=== PATIENT | male | born 1960 | race Caucasian/White ===

== ENCOUNTER 2022-09-19 11:14 | Inpatient (IN) | payer MEDICAID ==
[~2022-09-19] VITALS: Ht 177.8 cm; Wt 83.9 kg
--- NOTE | 2022-09-19 11:31 | NUR ---
PT BIB FRIEND, AWAKE AND INTOXICATED. PT FRIEND WAS CONCERNED BECAUSE PT WAS ACTING ABNORMALLY. PT FRIEND STATED THAT PT IS A REGULAR DRINKER AND DRINKS 1 PINT OF WHISKEY A DAY. PT ALSO TAKING NORCO FOR PAIN TO A BACK INJURY LAST WEEK.
--- NOTE | 2022-09-19 11:33 | NUR ---
MD DR CHOWDHURY AT BEDSIDE
[2022-09-19 12:35] LABS: ANION GAP 8 (5-15); BASOPHILS # (AUTO) 0.1 K/uL (0.0-0.2); BASOPHILS % (AUTO) 1.2 % (0.0-2.0); CALCIUM 8.4 mg/dL (8.4-11.0); CHLORIDE 103 mmol/L (98-107); CREATININE 1.01 mg/dL (0.55-1.30); EOSINOPHILS % (AUTO) 0.1 % (0.0-4.0); GLUCOSE 139 mg/dL (70-99); HEMATOCRIT 34.3 % (36-54); HEMOGLOBIN 11.8 g/dL (14.0-18.0); LYMPHOCYTES # (AUTO) 1.5 K/uL (1.0-5.5); LYMPHOCYTES % (AUTO) 12.4 % (20.5-51.5); MEAN CORPUSCULAR HEMOGLOBIN 33 pg (27-31); MEAN CORPUSCULAR HGB CONC 35 % (32-36); MEAN CORPUSCULAR VOLUME 94 fL (79.0-98.0); MONOCYTES # (AUTO) 0.6 K/uL (0.0-1.0); MONOCYTES % (AUTO) 4.8 % (1.7-9.3); NEUTROPHILS # (AUTO) 9.7 K/uL (1.8-7.7); NEUTROPHILS % (AUTO) 81.5 % (40.0-70.0); PLATELET COUNT (AUTO) 185 K/uL (130-430); RED BLOOD CELL COUNT(AUTO) 3.63 MIL/uL (4.2-6.2); RED CELL DISTRIBUTION WIDTH 18.4 % (9.0-15.0); UREA NITROGEN, BLOOD 19 mg/dL (8-21); WHITE BLOOD COUNT (AUTO) 11.9 K/uL (4.8-10.8)
[2022-09-19 12:44] LABS: ALANINE AMINOTRANSFERASE 31 U/L (12-78); ALBUMIN 2.7 g/dL (3.4-4.8); AMYLASE 49 U/L (0-100); ASPARTATE AMINOTRANSFERASE 76 U/L (10-37); LIPASE 153 U/L (73-393); TOTAL BILIRUBIN 2.1 mg/dL (0.0-1.0)
[2022-09-19 12:47] LABS: ACETAMINOPHEN < 1 ug/mL (1-30); GFR AFRICAN AMERICAN 97 mL/min (>90)
[2022-09-19 12:48] LABS: ALCOHOL, BLOOD 414 mg/dL (<10)
[2022-09-19 12:51] LABS: ACETONE, SERUM NEGATIVE (NEGATIVE)
[2022-09-19] MEDS: NACL 0.9% 1,000 ML IV SCH ×2 (14:30→22:24)
--- NOTE | 2022-09-19 14:40 | NUR ---
COVID SWAB OBTAINED AND SENT TO LAB.
[2022-09-19] MEDS: chlordiazePOXIDE HCL 25 MG CAPSULE PO SCH ×2 (15:00→22:21)
--- NOTE | 2022-09-19 15:00 | NUR ---
PT IS A POOR HISTORIAN OF HIS MEDICATION, RECONCILIATION NOT DONE
[2022-09-19] MEDS ORDERED: MORPHINE 2 MG/ML INJ. SYRINGE IVP PRN ×2 (15:15)
[2022-09-19] MEDS ORDERED: DOCUSATE SODIUM 100 MG CAPSULE PO PRN (15:15)
[2022-09-19] MEDS ORDERED: MUPIROCIN 2% TOPICAL OINTMENT 22 GM NS PRN (15:15)
[2022-09-19] MEDS ORDERED: ZOLPIDEM TARTRATE 5 MG TABLET PO PRN (15:15)
[2022-09-19] MEDS ORDERED: MAGNESIUM SULFATE 50 ML IV PRN (15:15)
[2022-09-19] MEDS ORDERED: ONDANSETRON HCL 4 MG/2 ML VIAL IVP PRN (15:15)
[2022-09-19] MEDS ORDERED: LORazepam 2 MG/ML VIAL IVP PRN ×2 (15:15)
[2022-09-19] MEDS ORDERED: POTASSIUM CHLORIDE 20 MEQ TAB.PRT.SR PO PRN (15:15)
--- NOTE | 2022-09-19 15:26 | NUR ---
Admit bed requested Patient will be admitted to care of Dr. DAO. Admitted to TELE unit. Diagnosis ACUTE ALCOHOSLISM, ENCEPALATOTY Inpatient (Yes or No) YES Observation (Yes or No) NO Orientation concerns or request close to nursing station (Yes or No) NO Covid Status NEG On vent or bipap NO Isolation requirements NO Needs a sitter NO From Home (Yes or if No enter name of facility) HOME Requires Dialysis (Yes or No) NO Med Rec Completed (Yes of No) YES
--- NOTE | 2022-09-19 18:04 | NUR ---
Served regular dinner tray, helped pt. sit up. He is eating now.
[2022-09-19] MEDS ORDERED: chlordiazePOXIDE HCL 25 MG CAPSULE ONE (20:56)
--- NOTE | 2022-09-19 21:30 | NUR ---
ADMISSION NOTE Received patient from ER via gurney. Patient admitted with diagnosis of Acute Alcoholism, Encephalopathy. Patient is awake, alert, oriented X 4. Patient oriented to hospital room, call light, toileting, pain management and safety-teach back done. Patient informed that Sahil FLORES will be the nurse and that their room number is 102B. Personal belongings checked and Belongings List documented. Call light within reach.
[2022-09-19 22:26] VITALS: BP_SYST 155
[2022-09-19 23:26] VITALS: BP_SYST 135
--- NOTE | 2022-09-19 23:41 | NUR ---
Patient will be admitted to care of DR DAO. Admitted to TELE unit. Will go to room 102B. Belongings list completed. Complete and up to date summary report printed. SBAR report to be given at bedside with opportunity for questions.
[2022-09-20] VITALS (8 sets, daily range): BP systolic 146–164
--- NOTE | 2022-09-20 02:49 | NUR ---
CONSULTATION PAGED/CALLED Reason for Consultation: CHRONIC SUNDURAL HEMATURA Person Who was Notified: DR MOLINA VIA TEXT Consulting Physician: Laverne MOLINA [employer]ulcanizer Tender Specialty: Ordering Physician: FELIBERTO
[2022-09-20] MEDS ORDERED: METOPROLOL TARTRATE 25 MG TABLET PO SCH (04:00)
[2022-09-20] MEDS: ACETAMINOPHEN 325 MG TABLET PO PRN ×2 (04:16→14:28)
--- NOTE | 2022-09-20 04:28 | NUR ---
Dr. Vallejo Called: Patient had a consistently High HR that would rise up to the 160 range and maintain for about 5 minutes but would no go lower than 120BPM. Dr. Helms was notified and a new order was received for Lopressor order is noted and carried out. Will continue to monitor patient.
--- NOTE | 2022-09-20 06:56 | NUR ---
Patient was assessed prior to administration of Lopressor and Temp was noted to be elevated at 101.5 at 0415am. acetaminophen was administered and cooling measures were applied. Patient temp was reassessed after 30 minutes and noted to be 99.1.
[2022-09-20 07:02] LABS: HEMATOCRIT 30.6 % (36-54); HEMOGLOBIN 10.4 g/dL (14.0-18.0); LYMPHOCYTES # (AUTO) 1.1 K/uL (1.0-5.5); LYMPHOCYTES % (AUTO) 10.3 % (20.5-51.5); MEAN CORPUSCULAR HEMOGLOBIN 32 pg (27-31); MEAN CORPUSCULAR HGB CONC 34 % (32-36); MEAN CORPUSCULAR VOLUME 94 fL (79.0-98.0); MONOCYTES # (AUTO) 0.7 K/uL (0.0-1.0); MONOCYTES % (AUTO) 6.7 % (1.7-9.3); NEUTROPHILS # (AUTO) 8.9 K/uL (1.8-7.7); NEUTROPHILS % (AUTO) 81.6 % (40.0-70.0); PLATELET COUNT (AUTO) 74 K/uL (130-430); RED BLOOD CELL COUNT(AUTO) 3.26 MIL/uL (4.2-6.2); RED CELL DISTRIBUTION WIDTH 18.1 % (9.0-15.0); WHITE BLOOD COUNT (AUTO) 10.9 K/uL (4.8-10.8)
[2022-09-20] MEDS: NACL 0.9% 1,000 ML IV SCH ×2 (07:10→15:30)
[2022-09-20 07:41] LABS: CALCIUM 7.9 mg/dL (8.4-11.0); CREATININE 0.81 mg/dL (0.55-1.30)
--- NOTE | 2022-09-20 08:00 | NUR ---
Initial notes Received patient awake in bed sleeping, respiration even and unlabored, no signs of distress Saline lock to both RFA and LAC patent. All safety precaution secure continue to monitor.
[2022-09-20 08:30] LABS: BASOPHILS % (AUTO) 0.2 % (0.0-2.0); EOSINOPHILS # (AUTO) 0.1 K/uL (0.0-0.4); EOSINOPHILS % (AUTO) 1.2 % (0.0-4.0)
[2022-09-20] MEDS: chlordiazePOXIDE HCL 25 MG CAPSULE PO SCH ×2 (08:44→14:29)
[2022-09-20] MEDS ORDERED: MAGNESIUM SULFATE 4 GM in D5W 250 ML IV ONE (09:30)
[2022-09-20] MEDS ORDERED: LIB25 PO (12:55)
--- NOTE | 2022-09-20 14:00 | NUR ---
Medication given for anxiety
--- NOTE | 2022-09-20 14:41 | NUR ---
Observe patient shivering ,shaking, temperature 102, PT at bedside patient unable to sit at edge of bed. Notified Dr. Helms. Ativan given. Continue to monitor patient in 2 hours for pending discharge.
--- NOTE | 2022-09-20 16:15 | NUR ---
Discontinue Saline lock to right and left forearm with catheter intact
--- NOTE | 2022-09-20 18:30 | NUR ---
Reassess patient for discharge Patient verbalizes feeling better, alert/awake /oriented x4. No signs of tremors or shivering. Dr Helms OK for patient to be discharge at this time.
--- NOTE | 2022-09-20 18:56 | NUR ---
Patient discharge home per doctor order (Dr. Helms). No signs of shivering or tremor, or SOB, vital signs w/in norm. Instruction given, educational information per medical diagnosis. Prescription given to patient to filled by outside pharmacy. Instruct patient to followup primary care physician. Communicate with Abe ( patient partner ) who will take patient home.
[2022-09-21] MEDS ORDERED: LIB25 PO ×2 (15:08→15:37)
== END 2022-09-20 21:15 | disposition home or self-care (01) | DRG 816 ==
LOC: SED 11:14 → STU 15:29
PROVIDERS: ADMIT General Practice; ATTEND General Practice
DX: T51.91XA Toxic effect of unspecified alcohol, accidental (unintentional), initial encounter (principal); G92.9 Unspecified toxic encephalopathy; F10.121 Alcohol abuse with intoxication delirium; F10.131 Alcohol abuse with withdrawal delirium; I62.03 Nontraumatic chronic subdural hemorrhage; E44.1 Mild protein-calorie malnutrition; E83.42 Hypomagnesemia; I10 Essential (primary) hypertension; Y90.9 Presence of alcohol in blood, level not specified; D72.829 Elevated white blood cell count, unspecified
CPT/HCPCS: 36415; 70450-TC; 71045; 76376; 80048; 80053; 82009; 82140; 82150; 83036; 83605; 83690; 83735; 85025; 97163-GP; 99285; G0378; G0480; G0481; G0482; J2060; J2270; J3475; J7030; J7060

== ENCOUNTER 2022-10-22 19:31 | Inpatient (IN) | payer MEDICAID ==
[~2022-10-22] VITALS: Ht 182.9 cm; Wt 81.2 kg
[~2022-10-22 19:31] MED LIST: LIB25 PO
[2022-10-22 19:42] VITALS: BP_SYST 109
[2022-10-22 20:16] LABS: MEAN CORPUSCULAR HEMOGLOBIN 33 pg (27-31); MEAN CORPUSCULAR HGB CONC 32 % (32-36); MEAN CORPUSCULAR VOLUME 101 fL (79.0-98.0); RED CELL DISTRIBUTION WIDTH 21.4 % (9.0-15.0)
[2022-10-22 20:33] LABS: HEMATOCRIT 19.4 % (36-54); HEMOGLOBIN 6.2 g/dL (14.0-18.0); PLATELET COUNT (AUTO) 32 K/uL (130-430); RED BLOOD CELL COUNT(AUTO) 1.92 MIL/uL (4.2-6.2)
[2022-10-22 20:38] LABS: INR 2.1 (0.80-1.20); PROTHROMBIN TIME 20.9 SECS (9.5-12.5)
[2022-10-22 20:47] LABS: ANION GAP 25 (5-15); CALCIUM 9.3 mg/dL (8.4-11.0); CHLORIDE 104 mmol/L (98-107); GLUCOSE 139 mg/dL (70-99)
[2022-10-22 20:49] LABS: ALANINE AMINOTRANSFERASE 13 U/L (12-78); ALCOHOL, BLOOD 4 mg/dL (<10); ASPARTATE AMINOTRANSFERASE 87 U/L (10-37)
[2022-10-22 20:54] LABS: BAND % (MANUAL) 7 % (0-6); BASOPHILS % (MANUAL) 0 % (0-2); EOSINOPHILS % (MANUAL) 0 % (0-7); LYMPHOCYTES % (MANUAL) 8 % (20-46); METAMYELOCYTES % 1 % (0-0)
[2022-10-22 20:55] LABS: MONOCYTES % (MANUAL) 11 % (0-11)
[2022-10-22 20:57] LABS: GFR AFRICAN AMERICAN 7 mL/min (>90)
[2022-10-22 21:00] LABS: ACETAMINOPHEN < 1 ug/mL (1-30); UREA NITROGEN, BLOOD 176 mg/dL (8-21)
[2022-10-22] MEDS ORDERED: VANCOMYCIN HCL 1,000 MG in NS 250 ML IV ONE (21:00)
[2022-10-22] MEDS ORDERED: PIPERACILLIN/TAZO 4.5GM/DEX-IS 100 ML IV ONE (21:00)
[2022-10-22 21:01] LABS: CREATININE 9.47 mg/dL (0.55-1.30)
[2022-10-22 21:12] LABS: ACETONE, SERUM NEGATIVE (NEGATIVE)
[2022-10-22] MEDS ORDERED: D5NS 500 ML IV ONE (21:15)
[2022-10-22] MEDS ORDERED: PIPERACILLIN/TAZOBACTAM 4.5 GM/VIAL (ZOSYN) IV ONE (21:20)
[2022-10-22] MEDS ORDERED: VANCOMYCIN HCL 1000 MG/VIAL IV ONE (21:24)
[2022-10-22] MEDS ORDERED: cefTRIAXone 1 GM IVPB PREMIX 50 ML IV SCH (22:00)
[2022-10-22] MEDS ORDERED: ZOLPIDEM TARTRATE 5 MG TABLET PO PRN (22:00)
[2022-10-22] MEDS ORDERED: DOCUSATE SODIUM 100 MG/10 ML UDC PO PRN (22:00)
[2022-10-22] MEDS ORDERED: ONDANSETRON HCL 4 MG/2 ML VIAL IVP PRN (22:00)
[2022-10-22] MEDS ORDERED: guaiFENesin/DEXTROMETHORPHAN 10 ML UDC PO PRN (22:00)
[2022-10-22] MEDS ORDERED: HYDROcodone/ACETAMIN 7.5-325 MG TAB PO PRN (22:00)
[2022-10-22] MEDS ORDERED: NACL 0.9% 2,000 ML IV ONE (22:00)
[2022-10-22] MEDS ORDERED: NS 500 ML IV ONE (22:00)
[2022-10-22] MEDS ORDERED: ACETAMINOPHEN 500 MG TABLET PO PRN (22:00)
[2022-10-22] MEDS ORDERED: chlordiazePOXIDE HCL 25 MG CAPSULE PO PRN (22:00)
[2022-10-22] MEDS ORDERED: MORPHINE 2 MG/ML INJ. SYRINGE IVP PRN (22:00)
[2022-10-22 22:56] LABS: FREE T4 (FREE THYROXINE) 1.2 ng/dL (0.6-1.6); THYROID STIMULATING HORMONE 0.96 uIu/mL (0.34-4.82)
[2022-10-22 23:00] VITALS: BP_SYST 99
[2022-10-23] VITALS (22 sets, daily range): BP systolic 92–141
[2022-10-23] MEDS ORDERED: SODIUM BICARBONATE 8.4% JECT 50 MEQ/50 ML SYRINGE IVP ONE (00:45)
[2022-10-23 06:35] LABS: INR 2.2 (0.80-1.20); PROTHROMBIN TIME 21.6 SECS (9.5-12.5)
[2022-10-23 07:15] LABS: ALBUMIN 1.6 g/dL (3.4-4.8); CALCIUM 8.1 mg/dL (8.4-11.0); TOTAL BILIRUBIN 7.7 mg/dL (0.0-1.0)
[2022-10-23 07:17] LABS: CREATININE 8.87 mg/dL (0.55-1.30)
[2022-10-23 07:42] LABS: BASOPHILS # (AUTO) 0.1 K/uL (0.0-0.2); BASOPHILS % (AUTO) 0.4 % (0.0-2.0); EOSINOPHILS # (AUTO) 0.2 K/uL (0.0-0.4); LYMPHOCYTES # (AUTO) 1.6 K/uL (1.0-5.5); LYMPHOCYTES % (AUTO) 7.4 % (20.5-51.5); MEAN CORPUSCULAR HEMOGLOBIN 32 pg (27-31); MEAN CORPUSCULAR HGB CONC 33 % (32-36); MEAN CORPUSCULAR VOLUME 97 fL (79.0-98.0); MONOCYTES # (AUTO) 4.5 K/uL (0.0-1.0); MONOCYTES % (AUTO) 20.3 % (1.7-9.3); NEUTROPHILS # (AUTO) 15.8 K/uL (1.8-7.7); RED CELL DISTRIBUTION WIDTH 19.1 % (9.0-15.0); WHITE BLOOD COUNT (AUTO) 22.2 K/uL (4.8-10.8)
[2022-10-23 07:59] LABS: RED BLOOD CELL COUNT(AUTO) 1.95 MIL/uL (4.2-6.2)
[2022-10-23 08:11] LABS: HEMATOCRIT 18.9 % (36-54); HEMOGLOBIN 6.2 g/dL (14.0-18.0)
[2022-10-23 08:12] LABS: NEUTROPHILS % (AUTO) 70.9 % (40.0-70.0); PLATELET COUNT (AUTO) 23 K/uL (130-430)
[2022-10-23] MEDS ORDERED: POTASSIUM CHLORIDE 20 MEQ TAB.PRT.SR PO PRN (09:00)
[2022-10-23] MEDS ORDERED: PANTOPRAZOLE SODIUM 40 MG TAB PO SCH (09:00)
[2022-10-23] MEDS ORDERED: PANTOPRAZOLE SODIUM 40 MG in NS 50 ML IV SCH (10:00)
[2022-10-23] MEDS ORDERED: DESMOPRESSIN ACETATE IV ONE (11:00)
[2022-10-23] MEDS ORDERED: PHYTONADIONE 10 MG in NS 50 ML IV ONE (11:00)
[2022-10-23] MEDS ORDERED: NS IV ONE (11:00)
[2022-10-23] MEDS ORDERED: MORPHINE SULFATE IN 0.9 % NACL 100 ML IV PRN (14:30)
[2022-10-24 01:26] VITALS: BP_SYST 78
== END 2022-10-24 04:26 | DRG 720 ==
LOC: SED 19:31 → STU 21:05 → SIC 23:10 → SMU 10-23 18:22
PROVIDERS: ADMIT Family Medicine; ATTEND Family Medicine
PROC: 02HV33Z Insertion of Infusion Device into Superior Vena Cava, Percutaneous Approach (ICD-10-PCS; principal; 2022-10-22)
PROC: B548ZZA Ultrasonography of Superior Vena Cava, Guidance (ICD-10-PCS; 2022-10-22)
PROC: 30233R1 Transfusion of Nonautologous Platelets into Peripheral Vein, Percutaneous Approach (ICD-10-PCS; 2022-10-23)
PROC: 30233N1 Transfusion of Nonautologous Red Blood Cells into Peripheral Vein, Percutaneous Approach (ICD-10-PCS; 2022-10-23)
DX: A41.9 Sepsis, unspecified organism (principal); N17.0 Acute kidney failure with tubular necrosis; K76.7 Hepatorenal syndrome; G93.41 Metabolic encephalopathy; I50.43 Acute on chronic combined systolic (congestive) and diastolic (congestive) heart failure; E43 Unspecified severe protein-calorie malnutrition; K76.82 Hepatic encephalopathy; D68.9 Coagulation defect, unspecified; D69.6 Thrombocytopenia, unspecified; E87.0 Hyperosmolality and hypernatremia; F10.10 Alcohol abuse, uncomplicated; Y90.9 Presence of alcohol in blood, level not specified; D64.9 Anemia, unspecified; R74.01 Elevation of levels of liver transaminase levels; E87.20 Acidosis, unspecified; R04.0 Epistaxis; K92.2 Gastrointestinal hemorrhage, unspecified; R04.2 Hemoptysis; R56.9 Unspecified convulsions; E87.5 Hyperkalemia; K70.30 Alcoholic cirrhosis of liver without ascites; I13.2 Hypertensive heart and chronic kidney disease with heart failure and with stage 5 chronic kidney disease, or end stage renal disease; N18.6 End stage renal disease; Z68.24 Body mass index [BMI] 24.0-24.9, adult; Z88.8 Allergy status to other drugs, medicaments and biological substances; Z79.899 Other long term (current) drug therapy
CPT/HCPCS: 36415; 70450-TC; 71045; 76376; 76770; 80048; 80053; 80061; 82009; 82140; 82150; 82550; 82962; 83036; 83605; 83690; 83735; 83880; 84100; 84439; 84443; 84484; 85007; 85025; 85027; 85610-TC; 85730-TC; 86140; 86886; 86900; 86901; 86920; 87040; 87186-TC; 93306; 96365; 96366; 96368; 99291; C9113; G0480; G0481; G0482; J0696; J2270; J2543; J2597; J3370; J3430; J7050; P9021; P9034